=== PATIENT | male | born 1950 | race African-American/Black ===

== ENCOUNTER → 2022-05-27 | Day surgery (SDC) | payer MEDICARE, MEDICAID ==
[~2022-05-27] VITALS: Ht 193 cm; Wt 122.5 kg
[~2022-05-27] MED LIST: DOCU-155 PO; FENTANYL CITRATE/PF 50MCG/ML 2ML VIAL ONE; HYDR25TA PO; HYDRALAZINE 20MG/ML VIAL IV ONE; HYDROMORPHONE HCL/PF 2MG/ML CPJ IV PRN; LABETALOL 5MG/ML SYR 20 MG/4 ML SYRINGE IV PRN; LIDOCAINE HCL 1% 10 MG/ML 10ML VIAL ONE; MEPERIDINE HCL/PF 25MG/ML CPJ IV PRN; METF-414 PO; METH10OR PO; MIDAZOLAM HCL 2 MG/2 ML VIAL ONE; ONDANSETRON HCL 4MG/2ML INJ IV PRN; OXYC-582 PO; PROPOFOL 10 MG/ML IV ONE; SIMETHICONE 40 MG/0.6 ML 15ML ONE; SODIUM CHLORIDE 0.9% 1,000 ML IV SCH
[2022-05-27 09:14] LABS: BASOPHILS % 0.6 % (0.0-2.0); HEMATOCRIT. 33.8 % (42.0-52.0); HEMOGLOBIN. 10.9 g/dL (14.0-18.0); LYMPHOCYTES % 27.3 % (20.0-50.0); MEAN CORPUSCULAR HEMOGLOBIN 26.8 pg (28.0-32.0); MEAN CORPUSCULAR VOLUME 83.7 fL (80.0-94.0); MONOCYTES % 9.2 % (2.0-8.0); NEUTROPHILS % 59.9 % (40.0-76.0); RED BLOOD CELL COUNT 4.04 mill/uL (4.7-6.1); RED CELL DISTRIBUTION WIDTH 15.7 % (11.6-14.6)
[2022-05-27 09:23] LABS: CHLORIDE 101 mEq/L (98-107)
[2022-05-27 11:18] LABS: MEAN PLATELET VOLUME 9.8 fl (7.4-10.4); PLATELET 151 x1000/uL (130-400)
[2022-05-27 23:58] LABS: *AMPHETAMINES SCREEN URINE NEGATIVE (NEGATIVE); *BARBITURATES SCREEN URINE NEGATIVE (NEGATIVE); *BENZODIAZEPINES SCREEN URINE NEGATIVE (NEGATIVE); *COCAINE SCREEN URINE NEGATIVE (NEGATIVE); CANNABINOID URINE SCREEN NEGATIVE (NEGATIVE); METHADONE URINE SCREEN PRESUMTIVE POSITIVE (NEGATIVE); OPIATES URINE SCREEN PRESUMTIVE POSITIVE (NEGATIVE); PHENCYCLIDINE URINE SCREEN NEGATIVE (NEGATIVE)
== END | disposition home or self-care (01) ==
LOC: OR 08:30
PROVIDERS: ATTEND Internal Medicine Gastroenterology
DX: Z12.11 Encounter for screening for malignant neoplasm of colon (principal); Z45.2 Encounter for adjustment and management of vascular access device; K63.89 Other specified diseases of intestine; E11.9 Type 2 diabetes mellitus without complications; I10 Essential (primary) hypertension; M19.90 Unspecified osteoarthritis, unspecified site; Z79.84 Long term (current) use of oral hypoglycemic drugs; Z79.899 Other long term (current) drug therapy; Z98.890 Other specified postprocedural states; Z20.822 Contact with and (suspected) exposure to COVID-19
CPT/HCPCS: 36415; 36573; 80048; 80305; 82962; 85025; 87426; 93005; C1725; G0121; J0360; J2250; J2704; J3010; J3490